=== PATIENT | male | born 1990 | race Caucasian/White ===

== ENCOUNTER → 2016-12-04 | Outpatient (CLI) | payer OTHER, BC ==
[2014-05-08 14:21] VITALS: BP 128/64
[~2016-12-04] MED LIST: CIPRO 500MG TA500 MG PO; MAALOX1 TAB PO; NORCO 325 MG-51 TA1 PO; NORCO 325 MG-51 TAB PO; PEPCID20 M1 PO; PROTONIX40 MG PO
== END ==
LOC: LAB 07:46
DX: Z98.84 Bariatric surgery status (principal)